=== PATIENT | male | born 1965 | race Hispanic/Latino ===

== ENCOUNTER → 2018-12-28 | Day surgery (SDC) | payer BC ==
[~2018-12-28] MED LIST: ACETAMINOPHEN 1000 MG/100 ML IV ONE; AMLODIPINE BESYL5 MG PO; BUPIVACAINE HCL 0.5% INJ 30 ML VIAL INJ ONE; CEFAZOLIN SOD 1 GM/NS 50ML 100 ML IV ONE; DEXAMETHASONE SOD PHOS INJ 4 MG/ML VIAL ONE; FENTANYL CITRATE/PF 100MCG/2 ML INJ ONE; KETOROLAC TROMETHAMINE 30 MG/ML VIAL ONE; LIDOCAINE HCL 2% LOCAL INJ 5 ML SDV VIAL INJ ONE; LOVASTATIN40 MG PO; MIDAZOLAM HCL 2 MG/2 ML VIAL ONE; NEOSTIGMINE 1 MG/ML 10ML VIAL ONE; ONDANSETRON HCL INJ 2MG/ML 2ML 2 MG/ML VIAL ONE; PANTOPRAZOLE SO40 MG PO; PROPOFOL IV EMULSION 10 MG/ML 20 ML VIAL ONE; SEVOFLURANE INHAL SOLN 250 ML PEN BTL ONE
[2018-12-28 12:55] VITALS: BP 139/90
--- NOTE | 2018-12-28 18:48 | Operative Report ---
DATE OF PROCEDURE: 12/28/2018 SURGEON: Unique Ramírez DPM PRIMARY EDUCATION PROFESSOR: None. PREOPERATIVE DIAGNOSES: 1. Hallux abductovalgus with hallux rigidus, right foot. 2. Plantar flexed, 2nd metatarsal with stage I lesion to the plantar aspect of the 2nd right foot. 3. Small hammertoe. POSTOPERATIVE DIAGNOSES: 1. Hallux abductovalgus with hallux rigidus, right foot. 2. Plantar flexed, 2nd metatarsal with stage I lesion to the plantar aspect of the 2nd right foot. 3. Small hammertoe. PROCEDURES: 1. Decompression osteotomy 1st metatarsal, right foot. 2. Dorsiflex ray osteotomy, 2nd metatarsal, right foot. 3. Tenotomy and extensor tendon lengthening, right 2nd foot. PATHOLOGY: None. ANESTHESIA: General anesthetic with a local block. HEMOSTASIS: Pneumatic ankle tourniquet. ESTIMATED BLOOD LOSS: Less than 10 mL. MATERIALS: A human allograft 2 x 4 from [employer] to prevent adhesions, to prevent nerve entrapment, and also use at the area of the 2nd MPJ and the large area of synovitis. COMPLICATIONS: None. CONDITION: Stable. PROCEDURE IN DETAIL: Under mild sedation, the patient was brought to the operating room, and placed on the operating table in supine position. Following IV sedation, anesthesia was obtained with a general anesthetic. At this point, the right foot scrubbed, prepped, and draped in usual aseptic manner. The ankle tourniquet was inflated at 250 mmHg and the leg was lowered to the table. Attention was then directed to the dorsal aspect of the right foot. After a local block was given to the right foot, a linear incision was made overlying the 1st metatarsophalangeal joint; the incision was deepened via sharp and blunt dissection, taking care to retract or cauterize neurovascular structures as necessary, it was deepened down to the level of the capsule, linear capsulotomy was then performed. At this point, all the DJD that was noted dorsal, medial, and laterally was removed using the oscillating saw and a bone rongeur. The central cartilage was intact. There were no osteochondral lesions present. A lateral release was then performed in order to let the sesamoids free into more anatomical position. At this point, the decompression osteotomy was made; a 60-degree osteotomy in order to decompress the joint was performed in a standard fashion. The osteotomy was then fixated utilizing two screws, 2.5 and 2.0 utilized in standard AO technique. There was noted to be adequate compression noted clinically with the use of intraoperative fluoroscopy. The area was then flushed with copious amount of normal sterile saline solution and the area was closed in layers 2-0 Vicryl, 3-0 Vicryl, and 4-0 nylon. Attention was directed to the 2nd metatarsophalangeal joint, where a linear incision was made overlying the joint. The incision was deepened down to the level of the 2nd MPJ, where linear capsulotomy was then performed. The extensor tendon was then lengthening in a Z-type of fashion. Once the linear capsulotomy was then made at the 2nd MPJ, it was noted to be large amount of synovial fluid down into this joint. All this was removed with the use of bone rongeur. The area was then flushed with copious amount of normal sterile saline solution. Dorsiflexor osteotomy was performed through and through, noted to decrease the compression at the metatarsophalangeal joint, it was then fixated utilizing a 2-0 screw x 10 mm. There was noted to be adequate compression clinically with the use of intraoperative fluoroscopy. Then, all incisions were closed, closing the deepest layer 2-0 Vicryl, 3-0 Vicryl, and 4-0 nylon. Before closure, human allograft was then inserted into the 2nd MPJ, right at the area of the synovial tissue at the capsule in order to decrease the inflammatory response, then to the rest of the graft was applied right at the capsular level to promote healing and to prevent adhesion of the nerve into the area. Clean dressing was applied, consisting of Adaptic, 4x4s, Kerlix, and an Mike bandage. The tourniquet was deflated. There was noted to be hyperemic response to all digits. The patient tolerated the procedure and anesthesia well without complications, was transferred to recovery room with vital signs stable and vascular status intact to both feet. The patient will be discharged home when he meets criteria. He was given instructions to be nonweightbearing to ice and elevate the foot while at rest. Follow up with me in the office and to call the office if any questions, concerns, or new problems arise. WALLACE Flowers/[place] /[id number]
== END | disposition home or self-care (01) ==
LOC: OR 07:53
PROVIDERS: ATTEND Podiatrist Foot & Ankle Surgery
DX: M20.11 Hallux valgus (acquired), right foot (principal); M20.21 Hallux rigidus, right foot; M19.071 Primary osteoarthritis, right ankle and foot; M21.271 Flexion deformity, right ankle and toes; M20.41 Other hammer toe(s) (acquired), right foot; I10 Essential (primary) hypertension; K21.9 Gastro-esophageal reflux disease without esophagitis; E78.00 Pure hypercholesterolemia, unspecified; Z01.810 Encounter for preprocedural cardiovascular examination
CPT/HCPCS: 28296; 28308; 28313; 93005; J0131; J0690; J1100; J1885; J2001; J2250; J2405; J2704; J2710; J3010